=== PATIENT | male | born 1985 | race Native Hawaiian/Other Pacific Islander ===

== ENCOUNTER 2018-05-11 12:29 | Emergency (ER) | payer BC ==
--- NOTE | 2018-05-11 13:30 | ED PDOC ---
Upper Extremity Pain/Injury Time Seen by Provider: 05/11/18 12:50 Chief Complaint (Nursing): Upper Extremity Problem/Injury Chief Complaint (Provider): Left elbow pain and swelling History Per: Patient History/Exam Limitations: no limitations Onset/Duration Of Symptoms: Days (1) Current Symptoms Are (Timing): Still Present Additional History Per: Patient Additional Complaint(s): 32yo male, otherwise well, comes to ER reporting atraumatic left elbow swelling with associated mild redness. Patient states he had a low grade fever yesterday, with TMax of 99.8; patient denies any fevers today. 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 Otherwise, patient denies any weakness, numbness or tingling to his left arm. He has no additional complaints. Of note, patient was seen in an urgent care and referred to ER for further evaluation. Past Medical History Reviewed: Historical Data, Nursing Documentation, Vital Signs Vital Signs: Last Vital Signs Temp 98.4 F 05/11/18 12:34 Pulse 111 H 05/11/18 12:34 Resp 20 05/11/18 12:34 BP 155/91 H 05/11/18 12:34 Pulse Ox 98 05/11/18 12:34 - Medical History PMH: No Chronic Diseases - Surgical History Surgical History: No Surg Hx - Family History Family History: States: No Known Family Hx - Home Medications Home Medications: Ambulatory Orders Medication Instructions Recorded Cephalexin [cephalexin] 500 mg PO TID 7 Days cap 05/11/18 Ibuprofen [Motrin Tab] 600 mg PO TID #15 tab 05/11/18 - Allergies Allergies/Adverse Reactions: Allergies Allergy/AdvReac Type Severity Reaction Status Date / Time No Known Allergies Allergy Verified 05/11/18 12:34 Review of Systems ROS Statement: Except As Marked, All Systems Reviewed And Found Negative Musculoskeletal: Positive for: Other (left elbow swelling with mild redness) Neurological: Negative for: Weakness, Numbness Physical Exam - Reviewed Nursing Documentation Reviewed: Yes Vital Signs Reviewed: Yes - Physical Exam Appears: Positive for: Non-toxic Head Exam: Positive for: ATRAUMATIC, NORMAL INSPECTION, NORMOCEPHALIC Skin: Positive for: Normal Color Cardiovascular/Chest: Positive for: Regular Rate, Rhythm Pulses-Radial (L): 2+ Pulses-Radial (R): 2+ Extremity: Positive for: Normal ROM (Painless full ROM at left elbow both active and passive.), Swelling (mild swelling, minimal tenderness and erythema over left olecrenon; no diffuse joint swelling or erythema noted.). Negative for: Tenderness, Deformity Neurologic/Psych: Positive for: Alert, Oriented - ECG O2 Sat by Pulse Oximetry: 98 (RA) Pulse Ox Interpretation: Normal Medical Decision Making Medical Decision Making: Assessment: 32yo male with left elbow swelling and mild erythema; consistent with olecranon bursitis however will cover with abx given erythema. Patient with painless full ROM of left elbow, afebrile, no evidence of septic joint. Plan: --given Keflex 500mg PO -- Motrin 600mg PO 1311 Repeat heart rate is 88bpm. Scribe Attestation: Documented by Berenice Mendosa acting as a scribe for NETO Choudhury. Provider Attestation: All medical record entries made by the Scribe were at my direction and personally dictated by me. I have reviewed the chart and agree that the record accurately reflects my personal performance of the history, physical exam, medical decision making, and the department course for this patient. I have also personally directed, reviewed, and agree with the discharge instructions and disposition. Disposition - Clinical Impression Clinical Impression: Olecranon bursitis, left elbow - Patient ED Disposition Is Patient to be Admitted: No - Disposition Referrals: Lewis Barrientos MD [Staff Provider] - Disposition: Routine/Home Disposition Time: 13:44 Condition: STABLE Prescriptions: Cephalexin [cephalexin] 500 mg PO TID 7 Days cap Ibuprofen [Motrin Tab] 600 mg PO TID #15 tab Instructions: Olecranon Bursitis (DC) Forms: [employer] (Spanish)
[2018-05-11 14:04] VITALS: BP 133/79; PULSE 85; RESP 18; TEMP 98.3; O2SAT 100
== END 2018-05-11 14:03 | disposition home or self-care (01) ==
LOC: H.ER 12:29
DX: M70.22 Olecranon bursitis, left elbow (principal)